=== PATIENT | female | born 2000 | race Caucasian/White ===

== ENCOUNTER 2019-02-10 20:57 | Emergency (ER) | payer BC ==
--- NOTE | 2019-02-10 21:39 | RAD ---
RADIOGRAPH RIGHT SHOULDER [id number]: DATE: 02/10/2019 HISTORY: 18-year-old female status post acute traumatic pain due to fall FINDINGS: There is no dislocation. No fracture is identified. IMPRESSION: No fracture.
== END 2019-02-10 21:42 | disposition home or self-care (01) ==
LOC: SCSER 20:57
DX: S40.011A Contusion of right shoulder, initial encounter (principal); W19.XXXA Unspecified fall, initial encounter